=== PATIENT | male | born 1945 | race Caucasian/White ===

== ENCOUNTER → 2016-11-16 | Outpatient (CLI) | payer MEDICARE, BC ==
[~2016-11-16] MED LIST: ASPI-496 PO; AZAT50TA9 PO; CALC-116 PO; CHOL20002 PO; DOCU-131 PO; FINA5TAB4 PO; HYDR-3307 PO; IRBE1TAB37 PO; MESA1.2T PO; METO25TA35 PO; OMEP40CA6 PO; ONDA4TAB10 PO; OXYC-307 PO; SERT50TA5 PO; TERA1CAP3 PO; VITA10004 PO
== END | disposition home or self-care (01) ==
LOC: CFH 12:28
PROVIDERS: ATTEND Internal Medicine Cardiovascular Disease
DX: I08.3 Combined rheumatic disorders of mitral, aortic and tricuspid valves (principal); I42.9 Cardiomyopathy, unspecified
CPT/HCPCS: 93306